=== PATIENT | female | born 1965 | race African-American/Black ===

== ENCOUNTER 2018-07-03 18:09 | Emergency (ER) | payer MEDICARE ==
[~2018-07-03] VITALS: Ht 157.5 cm; Wt 64.0 kg
[2018-07-04] MEDS ORDERED: SODIUM CHLORIDE 0.9% 1,000 ML IV ONE (04:42)
[2018-07-04] MEDS ORDERED: PANTOPRAZOLE SODIUM 40 MG/VIAL IV ONE (04:45)
[2018-07-04] MEDS ORDERED: ONDANSETRON HCL 4MG/2ML INJ IV ONE (04:45)
[2018-07-04 05:25] LABS: CHLORIDE 106 mEq/L (98-107)
[2018-07-04 05:28] LABS: BASOPHILS % 1.3 % (0.0-2.0); EOSINOPHILS % 2.1 % (0.0-5.0); HEMOGLOBIN. 8.1 g/dL (12.0-16.0); LYMPHOCYTES % 19.9 % (20.0-50.0); MEAN CORPUSCULAR VOLUME 76.8 fL (81.0-99.0); MEAN PLATELET VOLUME 8.8 fl (7.4-10.4); MONOCYTES % 9.1 % (2.0-8.0); NEUTROPHILS % 67.6 % (40.0-76.0); PLATELET 417 x1000/uL (130-400); RED BLOOD CELL COUNT 3.38 mill/uL (4.2-5.4); RED CELL DISTRIBUTION WIDTH 17.8 % (11.6-14.6)
[2018-07-04 05:36] LABS: HCG SCREEN NEGATIVE
[2018-07-04 05:39] LABS: INR 0.9; PROTHROMBIN TIME 9.5 sec (9.1-11.1)
[2018-07-04] MEDS ORDERED: OLANZAPINE 5MG TABLET ODT PO ONE (06:00)
[2018-07-04 08:08] VITALS: BP 117/66
== END 2018-07-04 08:00 | disposition home or self-care (01) ==
LOC: ER 18:09
DX: K92.0 Hematemesis (principal); K44.9 Diaphragmatic hernia without obstruction or gangrene; N28.89 Other specified disorders of kidney and ureter; J44.9 Chronic obstructive pulmonary disease, unspecified; H54.7 Unspecified visual loss; R62.50 Unspecified lack of expected normal physiological development in childhood; F80.2 Mixed receptive-expressive language disorder
CPT/HCPCS: 36415; 71045; 74176; 80053; 83690; 84703; 85025; 85610; 86850; 86900; 86901; 96361; 96374; 96375; 99284; C9113; J2405; J7030